=== PATIENT | female | born 1975 | race Caucasian/White ===

== ENCOUNTER → 2024-03-09 | Outpatient (CLI) | payer MEDICAID, SELFPAY ==
[2024-03-09 12:36] LABS: Erythrocyte Sedimentation Rate 10 mm/hr (0-30)
[2024-03-09 12:39] LABS: Absolute Neutrophil Count 3.5 X10^3/uL (2.0-7.7); Basophil# 0.05 X10^3/uL; Basophil% 0.7 % (0-1); Eosinophil# 0.12 X10^3/uL; Eosinophils% 1.7 % (0-5); Hematocrit 41.4 % (37-47); Hemoglobin 13.8 g/dL (12.0-15.0); Mean Corp Hgb Conc 33.3 g/dL (32-36); Mean Platelet Vol. 9.9 fl (6.2-12.0); Monocyte# 0.53 X10^3/uL; Monocyte% 7.7 % (0-10); NRBC Flagged by Analyzer 0 % (0-5); Neutrophil % 50.6 % (47-70); Platelet Count 284 K/mm3 (150-450); RBC Distribution Width CV 12.2 % (11.6-14.6); RBC Distribution Width SD 38.6 fl (35.1-43.9); Red Blood Count 4.76 M/mm3 (4.2-5.4); White Blood Count 6.9 K/mm3 (4.4-11.0)
[2024-03-09 12:41] LABS: Vitamin B12 482 pg/mL (211-911)
[2024-03-09 13:32] LABS: ALB/GLOB Ratio 1.1 RATIO (0.9-2.4); AST(SGOT) 17 U/L (15-37); Alanine Aminotransfer ALT/SGPT 23 U/L (13-56); Albumin, Serum 3.7 g/dL (3.2-5.0); Alkaline Phosphatase 83 U/L (45-117); Anion Gap 6 (5-15); BUN 13 mg/dL (7-18); BUN/Creat Ratio 18.4 RATIO (10-20); CRP < 2.90 mg/L (0.0-3.0); Calcium,Total 8.7 mg/dL (8.5-10.1); Chloride 105 mmol/L (98-107); Creatinine, Serum 0.71 mg/dL (0.55-1.02); EST Glomerular Filtration Rate 93 mL/min (>60); Est Glom Filt Rate - Afr Amer 113 mL/min (>60); Globulin 3.4 g/dL (2.2-4.2); Glucose 100 mg/dL (74-106); Magnesium 2.3 mg/dL (1.6-2.6); Potassium 4.1 mmol/L (3.5-5.1); Protein, Total 7.1 g/dL (6.4-8.2); Sodium Level 136 mmol/L (136-145)
[2024-03-12 13:08] LABS: ANTINUCLEAR ANTIBODIES DIRECT Negative (Negative); Vitamin D 1,25-Dihydroxy 65.5 pg/mL (24.8-81.5)
[2024-03-12 15:09] LABS: Vitamin B1, Thiamine 118.2 nmol/L (66.5-200.0)
== END | disposition home or self-care (01) ==
PROVIDERS: Referring Provider Psychiatry & Neurology Neurology; Visit Provider Psychiatry & Neurology Neurology
DX: G35 Multiple sclerosis (principal)
CPT/HCPCS: 36415; 80053; 82607; 82652; 82746; 83735; 84425; 84443; 85025; 85652; 86038; 86140; 86225; 86235

== ENCOUNTER → 2024-04-06 | Outpatient (CLI) | payer MEDICAID, SELFPAY ==
--- NOTE | 2024-04-06 16:39 | MRI_ITS ---
STUDY: MRI BRAIN WITH AND WITHOUT CONTRAST REASON FOR EXAM: Female, 48 years old. Possible multiple sclerosis; migraine headaches TECHNIQUE: Standardized multiplanar fat and water weighted pulse sequences were obtained. IV 15 cc clariscan was administered for the contrast portion of the examination. COMPARISON: None. FINDINGS: Normal size of the ventricles and extra-axial spaces for the patient''s age. There are multiple bilateral white matter lesions several of which demonstrate appearance of Aarnda''s fingers without mass effect or restricted diffusion i highly suggestive of demyelinating plaques of multiple sclerosis. There are smaller lesions in the cerebellar hemispheres and zofia adjacent to the middle cerebellar peduncle. Normal bilateral basal ganglia. Normal thalami. There is no extra-axial fluid accumulation. Normal flow voids within the major intracranial circulation suggesting patency by spin echo criteria. Normal venous enhancement. There is no enhancing intra-axial or extra-axial abnormality. Normal sella turcica, pituitary gland, infundibular stalk, optic chiasm and hypothalamus. Normal tectal plate and pineal gland. Normal midbrain, and medulla. . Tiny lesion within the left pontine body possibly due to coexisting chronic small vessel ischemia. Normal basal cisterns. Normal bilateral temporal bones. Normal bilateral internal auditory canals. No demonstrated orbital abnormality, within the constraints of a routine brain study. Normal visualized paranasal sinuses. Normal calvarium and skull base. Normal visualized soft tissue structures. Normal visualized upper cervical spine. MRI/Brain W/WO Contrast IMPRESSION: Findings which are consistent with multiple sclerosis. No enhancing plaques to suggest acute demyelination. Electronically Signed: Ronak Jason MD at 18:37 EDT ,
== END | disposition home or self-care (01) ==
PROVIDERS: Referring Provider Psychiatry & Neurology Neurology; Visit Provider Psychiatry & Neurology Neurology
DX: G35 Multiple sclerosis (principal); G43.009 Migraine without aura, not intractable, without status migrainosus
CPT/HCPCS: 70553; A9575

== ENCOUNTER → 2024-07-20 | Outpatient (CLI) | payer MEDICARE, MEDICAID, SELFPAY ==
--- NOTE | 2024-07-20 14:07 | RAD_ITS ---
STUDY: X-RAY - RIGHT KNEE REASON FOR EXAM: Female, 49 years old. Bilateral knee pain. TECHNIQUE: 3 view(s) of the knee. COMPARISON: None. FINDINGS: Osteopenia. Moderate arthrosis of the medial compartment with small osteophytes. Mild arthrosis of the lateral compartment. Normal patellofemoral compartment. Small joint effusion. RAD/Knee 3 Views IMPRESSION: Osteopenia with medial and lateral compartmental arthrosis with small joint effusion. Electronically Signed: Aime Avelar MD at 15:13 EDT ,
--- NOTE | 2024-07-20 14:07 | RAD_ITS ---
STUDY: X-RAY - LEFT KNEE REASON FOR EXAM: Female, 49 years old. Bilateral knee pain. TECHNIQUE: 3 view(s) of the knee. COMPARISON: None. FINDINGS: Osteopenia. Moderate to marked arthrosis of the medial compartment. Moderate arthrosis of the lateral compartment. Moderate arthrosis of the patellofemoral compartment with osteophytes. Joint effusion with large intra-articular osteochondral body projected posteriorly measuring 2.6 cm in diameter. . RAD/Knee 3 Views IMPRESSION: Osteopenia, tricompartmental arthrosis and intra-articular osteochondral body. Electronically Signed: Aime Avelar MD at 15:12 EDT ,
== END | disposition home or self-care (01) ==
PROVIDERS: PCP Internal Medicine; Referring Provider Psychiatry & Neurology Neurology; Visit Provider Psychiatry & Neurology Neurology
DX: M25.561 Pain in right knee (principal); M25.562 Pain in left knee
CPT/HCPCS: 73562

== ENCOUNTER 2024-12-24 07:00 | Outpatient (CLI) | payer MEDICARE, MEDICAID, SELFPAY ==
[2024-12-24 08:46] LABS: Absolute Lymphocyte Count 3.04 X10^3/uL (0.83-4.51); Absolute Neutrophil Count 3.4 X10^3/uL (2.0-7.7); Basophil# 0.03 X10^3/uL; Basophil% 0.4 % (0-1); Eosinophil# 0.21 X10^3/uL; Eosinophils% 2.8 % (0-5); Hematocrit 42.8 % (37-47); Hemoglobin 13.7 g/dL (12.0-15.0); Lymphocyte # 3.04 X10^3/ul (0.83-4.51); Lymphocyte % 39.9 % (19-41); Mean Corpuscular Hgb 28.5 pg (27.0-32.0); Mean Platelet Vol. 9.5 fl (6.2-12.0); Monocyte# 0.89 X10^3/uL; Monocyte% 11.7 % (0-10); NRBC Flagged by Analyzer 0 % (0-5); Neutrophil # 3.42 X10^3/uL (2.7-7.7); Neutrophil % 44.9 % (47-70); Platelet Count 299 K/mm3 (150-450); RBC Distribution Width CV 12.2 % (11.6-14.6); RBC Distribution Width SD 39.9 fl (35.1-43.9); Red Blood Count 4.81 M/mm3 (4.2-5.4); White Blood Count 7.6 K/mm3 (4.4-11.0)
[2024-12-24 09:07] LABS: Hemoglobin A1c 5.7 % (3.8-5.6)
[2024-12-24 09:17] LABS: Albumin, Serum 3.7 g/dL (3.2-5.0); Anion Gap 8 (5-15); BUN 15 mg/dL (7-18); BUN/Creat Ratio 19.1 RATIO (10-20); Chloride 108 mmol/L (98-107); Creatinine, Serum 0.79 mg/dL (0.55-1.02); EST Glomerular Filtration Rate 82 mL/min (>60); Est Glom Filt Rate - Afr Amer 100 mL/min (>60); Glucose 103 mg/dL (74-106); Magnesium 2.1 mg/dL (1.6-2.6); Potassium 3.9 mmol/L (3.5-5.1); Sodium Level 141 mmol/L (136-145)
--- NOTE | 2025-01-18 16:37 | PAT.ANESEVAL ---
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 When Was Last Pacemaker Check QUESTION #4 FULL TEXT: You/Your Family Experience fever (hyperthermia) with Anesthesia Last Oral Intake Last Oral intake: Last Oral Intake NPO since Meds taken in AM with sips of water? Meds patient instructed to take am of surgery PONV PONV - galley stripper: PONV - galley stripper Female Yes 12/23/24 15:09 HX of Motion Sickness Yes 12/23/24 15:09 HX of N/V After Surgery No 12/23/24 15:09 Non-Smoker Yes 12/23/24 15:09 Duration of Surgery greater Yes 12/23/24 15:09 than 60 minutes Number of Risk Factors 4 12/23/24 15:09 PONV Score Severe Risk 12/23/24 15:09 Height & Weight Height & Weight: Anesthesia: Height & Weight Height 5 ft 4 in 07/20/24 13:04 Respiratory Assessment Respiratory Assessment - galley stripper: Respiratory Tract Infection Hx - galley stripper Hx Respiratory Tract Infection No 12/23/24 15:09 STOP Sleep Apnea STOP Sleep Apnea - galley stripper: STOP Sleep Apnea - galley stripper Hx Hypertension Yes: controlled with med 12/23/24 15:09 Hx Sleep Apnea No 12/23/24 15:09 CPAP BIPAP Do you snore loudly (louder No 12/23/24 15:09 than talking or can be heard Do you often feel tired/ No 12/23/24 15:09 fatigued/ sleepy during daytime? Has anyone observed you stop No 12/23/24 15:09 breathing during sleep? STOP Results Negative 12/23/24 15:09 QUESTION #5 FULL TEXT : Do you snore loudly (louder than talking or can be heard through closed doors)? Tobacco Use History Tobacco Use History - galley stripper: Tobacco Use History - galley stripper Tobacco Use Smoking Status Never smoker 12/23/24 15:09 Hx Tobacco Use No 12/23/24 15:09 Years Smoking Packs Smoked per Day Smoking Cessation Date was within the last 15 years Hx Smoking Cessation Date Hx Smoking Cessation Counseling Hematologic Medial History Hematologic Hx - galley stripper: Hematologic Medical Hx - documentation consultant Hx of Blood Transfusion No 12/23/24 15:09 Hx of Transfusion in last 3 No 12/23/24 15:09 Months Date of Last Transfusion (if within last 3 months) Ever experience any problems No 12/23/24 15:09 with transfusion(s)? Specify any problems Hx of Preganancy in last 3 N/A 12/23/24 15:09 Months Nurse Filling Out Transfusion NBUCHER 12/23/24 15:09 & Questions: Date: 12/23/24 12/23/24 15:09 Time: 15:13 12/23/24 15:09 Patient unable to answer at this time (ie. confused, unrespo /Reproduction History /Reproductive History - galley stripper: /Reproductive Hx- galley stripper Hx Now No 12/23/24 15:09 Gestational Age (in weeks): EDC: Hx Hx Para Hx Section SAB No 12/23/24 15:09 PFS Medical History (Updated 12/23/24 @ 15:24 by Lindsey Norwood) Wears glasses Wears partial dentures Eczema History of steroid therapy Walker as ambulation aid Restless legs TIA (transient ischemic attack) Gastric reflux Shortness of breath on exertion Non-smoker Hypertension Migraines Arthritis Home Medications ?Medication ?Instructions ?Recorded ?Last Taken ?Type metoprolol succinate 25 mg 25 mg PO DAILY 03/09/24 Unknown History tablet,extended release 24 hr (Toprol XL) venlafaxine 150 mg 150 mg PO DAILY 03/09/24 Unknown History capsule,extended release 24 hr (Effexor XR) ergocalciferol (vitamin D2) 1,250 2,500 mcg PO QWEEK 06/08/24 Unknown History mcg (50,000 unit) capsule venlafaxine 75 mg capsule,extended 75 mg PO DAILY 06/08/24 Unknown History release 24 hr betamethasone dipropionate 0.05 % 1 applic topical Q12H PRN rash 12/23/24 Unknown History topical cream metronidazole 500 mg tablet 500 mg PO BID 12/23/24 Unknown History multivitamin (Daily Multi-Vitamin 1 tab PO DAILY 12/23/24 Unknown History tablet) nystatin 100,000 unit/gram topical 1 applic topical BID 12/23/24 Unknown History ointment nystatin 100,000 unit/gram topical 1 applic topical 4X/DAY 12/23/24 Unknown History powder triamcinolone acetonide 0.025 % 1 applic topical BID 12/23/24 Unknown History topical cream Allergy/AdvReac Type Severity Reaction Status Date / Time magnesium Allergy Unknown PT UNSURE Verified 12/23/24 15:02 OF REACTION latex AdvReac Intermediate Rash Verified 12/23/24 15:02 Family History (Updated 06/08/24 @ 15:24 by Sharona Calderón) Other Diabetes Hypertension Thyroid disorder Surgical History (Updated 12/23/24 @ 15:24 by Lindsey Norwood) History of cholecystectomy History of section History of bunionectomy of right great toe Social History (Updated 06/08/24 @ 15:23 by Sharona Calderón) Smoking Status: Never smoker alcohol intake: never substance use type: does not use what type of physical activity do you participate in: none Audit: Pertinent Findings Pertinent Findings EKG Perinent findings: January 01, 2025. Normal sinus rhythm. January 06, 2025. Normal sinus rhythm. Cannot rule out anterior infarct, age undetermined. No change from January 01, 2025. Recommendation Anesthesia Recommendation Anesthesia recommendation: OPTIMIZED for anesthesia
== END 2024-12-24 19:00 | disposition home or self-care (01) ==
LOC: SDC 09-14 14:09
PROVIDERS: PCP Internal Medicine; Referring Provider Student in an Organized Health Care Education/Training Program; Visit Provider Student in an Organized Health Care Education/Training Program
DX: Z01.818 Encounter for other preprocedural examination (principal); K21.9 Gastro-esophageal reflux disease without esophagitis; I10 Essential (primary) hypertension; Z79.899 Other long term (current) drug therapy; Z53.09 Procedure and treatment not carried out because of other contraindication
CPT/HCPCS: 36415; 80048; 82040; 83036; 83735; 85025; 87081; 93005

== ENCOUNTER → 2024-12-29 | Outpatient (CLI) | payer MEDICARE, MEDICAID, SELFPAY ==
--- NOTE | 2024-12-29 19:04 | CT_ITS ---
PROCEDURE: CT left knee without IV contrast REASON FOR EXAM: Preoperative planning TECHNIQUE: Multiple contiguous axial images through the left knee were obtained without the administration of intravenous contrast. Two-dimensional coronal and sagittal reformatted images were reconstructed. Limited axial images through the left hip and ankle were also obtained. Low-dose imaging technique was utilized. COMPARISON: None. FINDINGS: See impression CT/Extremity Lower without Contra IMPRESSION: Severe tricompartmental left knee osteoarthritis, greatest in the medial and pa tellofemoral compartments including [id number] articulation and marginal osteophytes. Large ossified joint body along the pos terior intercondylar notch measuring up to 15 mm. Small knee joint effusion with synovial thickening. Negative for acute fractur e or malalignment. Incompletely characterized left adnexal mass measuring up to 5.9 cm. Recommend further evaluation with ultrasound. No acute findings about the left ankle. One or more dose reduction techniques were used (e.g., Automated exposure contr ol, adjustment of the mA and/or kV according to patient size, use of iterative reconstruction technique). Reading Location: [facility]
== END | disposition home or self-care (01) ==
LOC: CT 19:02
PROVIDERS: PCP Internal Medicine; Referring Provider Student in an Organized Health Care Education/Training Program; Visit Provider Student in an Organized Health Care Education/Training Program
DX: M17.12 Unilateral primary osteoarthritis, left knee (principal)
CPT/HCPCS: 73700